=== PATIENT | male | born 1955 | race Caucasian/White ===

== ENCOUNTER 2021-04-27 07:02 | Day surgery (SDC) | payer BC, MEDICARE ==
[~2021-04-27 07:02] MED LIST: Lactated Ringers 1,000 ML IV SCH; Sodium Chloride 0.9% 10 ML Syringe FLUSH PRN
[2021-04-27] MEDS ORDERED: Propofol 200 MG/20 ML SDV IV ONE (07:03)
[2021-04-27] MEDS ORDERED: Glycopyrrolate 0.2 MG/ML 5 ML MDV IV ONE (07:03)
[2021-04-27] MEDS ORDERED: Lidocaine 2% 100 MG/5 ML Syringe IVPUSH ONE (07:03)
[2021-04-27 16:08] VITALS: BP 108/78; PULSE 68
== END 2021-04-27 10:05 | disposition home or self-care (01) ==
LOC: FB.SDS 07:02
PROVIDERS: ATTEND Surgery
DX: K29.50 Unspecified chronic gastritis without bleeding (principal); K21.00 Gastro-esophageal reflux disease with esophagitis, without bleeding; K31.7 Polyp of stomach and duodenum; K25.9 Gastric ulcer, unspecified as acute or chronic, without hemorrhage or perforation; I10 Essential (primary) hypertension; J45.909 Unspecified asthma, uncomplicated; F41.9 Anxiety disorder, unspecified; Z98.890 Other specified postprocedural states; Z79.899 Other long term (current) drug therapy
CPT/HCPCS: 00731-QZ; 88305; 88313; 88342; J2704; J3490; J7120

== ENCOUNTER 2022-10-13 07:21 | Emergency (ER) | payer MEDICARE ==
[2022-10-13 09:42] VITALS: BP 126/76; PULSE 82
== END 2022-10-13 09:09 ==
LOC: FB.ED 07:21
DX: M25.461 Effusion, right knee (principal); M25.561 Pain in right knee; I10 Essential (primary) hypertension; J45.909 Unspecified asthma, uncomplicated; E66.9 Obesity, unspecified; Z68.28 Body mass index [BMI] 28.0-28.9, adult
CPT/HCPCS: 99284